=== PATIENT | female | born 1995 | race African-American/Black ===

== ENCOUNTER 2016-09-23 01:36 | Emergency (ER) | payer SELFPAY ==
--- NOTE | ~2016-09-23 | ER ---
PATIENT'S NAME: OPAL SAUCEDO [facility] AGE: 21 Y [address] ROOM: [place] [address] LOCATION: [facility] ADMIT DATE: 09/23/2016 ER/Outpatient Report DISCHARGE DATE: 09/23/2016 FAMILY PHYSICIAN: Physician, Unknown ATTENDING PHYSICIAN: Peterson Mayfield Time of Arrival: 0136 hours. Time of Evaluation: 0141 hours. CHIEF COMPLAINT: Abdominal pain. HISTORY OF PRESENT ILLNESS: The patient is a 21-year-old female who presents to the emergency department today with a chief complaint of abdominal pain. She reports this started about 2 hours prior to arrival. She does have some nausea. No vomiting. No diarrhea or constipation. No fevers or chills. No urinary frequency or urgency. She denies any vaginal bleeding or vaginal discharge. She is sexually active. PAST MEDICAL HISTORY: Cyst on her ovary. PAST SURGICAL HISTORY: Facial reconstruction. SOCIAL HISTORY: The patient smokes half pack per day. Denies any alcohol or illicit drug use. ALLERGIES: PENICILLIN. MEDICATIONS: None. PRIMARY CARE DOCTOR: None. REVIEW OF SYSTEMS: All systems are reviewed by myself and are negative with the exception of those discussed in the HPI and past medical history. PHYSICAL EXAMINATION: VITAL SIGNS: Weight 55 kg. Blood pressure 130/76, pulse 89, respiratory rate 16, temperature 98.3, oxygen saturation 99% on room air. PATIENT'S NAME: OPAL SAUCEDO [facility] AGE: 21 Y [address] ROOM: [place] [address] LOCATION: [facility] ADMIT DATE: 09/23/2016 ER/Outpatient Report DISCHARGE DATE: 09/23/2016 FAMILY PHYSICIAN: Physician, Unknown ATTENDING PHYSICIAN: Peterson Mayfield GENERAL: The patient is a 21-year-old female, appears stated age, in no acute distress. HEENT: Head: Normocephalic, atraumatic. Pupils are equal, round, and reactive to light. Oropharynx is clear. NECK: Supple. There is no nuchal rigidity. CARDIOVASCULAR: Regular rate and rhythm. No murmurs, rubs, or gallops. LUNGS: Clear to auscultation bilaterally. No wheezes, rales, or rhonchi. ABDOMEN: Soft. Mild diffuse tenderness to palpation. No rebound, rigidity, or guarding. Positive bowel sounds. MUSCULOSKELETAL: The patient moves all 4 extremities. SKIN: Warm and dry. No rashes or lesions noted. LABORATORY DATA AND X-RAYS: Urinalysis shows 500 leukocyte esterase, positive nitrites, 50-100 wbc's, full field epithelials, many bacteria. CBC is normal. Does show 0-2 Trichomonas. Urine HCG is negative. CMP is unremarkable. LFTs are normal. IMPRESSION: 1. Trichomoniasis. 2. Acute urinary tract infection. 3. Initial visit. EMERGENCY DEPARTMENT COURSE: The patient was brought back to the examination room. Seen and evaluated by myself. The patient was given 30 mg of Toradol IM. She is given 250 mg of Rocephin IM. I have discussed results with the patient. I have written a prescription for doxycycline, Macrobid and Flagyl. I have asked she follows up with primary care doctor for full STD testing. I have discussed return to care instructions including worsening symptoms or any other concerns to return to the emergency department as soon as possible. The patient is agreeable. She is without further questions at this time. DISPOSITION: The patient discharged home in good condition. DO CECILIO HURD/venkat /[id number] d: 09/23/16904 t: 09/23/16 192, OUTPATIENT REPORT
[2016-09-23 01:59] LABS: BILIRUBIN URINE NEGATIVE (NEGATIVE); BLOOD URINE 10 /UL (NEGATIVE); COLOR URINE YELLOW (YELLOW); GLUCOSE URINE NEGATIVE (NEGATIVE); KETONE URINE NEGATIVE (NEGATIVE); LEUKOCYTES URINE 500 /UL (NEGATIVE); NITRITE URINE POSITIVE (NEGATIVE); PH URINE 6.5 (4.0-8.0); PROTEIN URINE NEGATIVE (NEGATIVE); SPEC GRAVITY URINE 1.015 (1.003-1.035); TURBIDITY URINE 2+ (CLEAR); UROBILINOGEN URINE 1 mg/dL (NORMAL)
[2016-09-23 02:19] LABS: BASOPHIL # 0.1 K/uL (0.0-0.2); BASOPHIL % 0.6 %; EOSINOPHIL # 0.3 K/uL (0.0-0.5); EOSINOPHIL % 3.1 %; HEMATOCRIT 37.8 % (33.0-46.0); IMMATURE GRANULOCYTE % 0.3 %; LYMPHOCYTE # 4.3 K/uL (0.8-4.0); LYMPHOCYTE % 41.9 %; MCH 30.9 pg (27.0-34.0); MCHC 34.4 gm/dL (32.0-36.5); MCV 89.8 fl (83.0-98.0); MONOCYTE % 9.3 %; MPV 10.7 fl (9.4-12.4); NEUTROPHIL # (ANC) 4.6 K/uL (1.8-7.8); NEUTROPHIL % 44.8 %; NRBC % 0 /100WBC (0-0.00); PLATELET COUNT 181 K/uL (150-450); RBC 4.21 M/uL (3.50-5.00); RDW-CV 12.8 % (11.9-14.6); WBC 10.2 K/uL (4.0-11.0)
[2016-09-23 02:26] LABS: RBC URINE 0-2 #/HPF (NEGATIVE); WBC URINE 50-100 #/HPF (NEGATIVE)
[2016-09-23 02:27] LABS: BACTERIA URINE MANY (NEGATIVE); EPITHELIAL URINE FULL FIELD #/HPF (NEGATIVE); TRICHOMONAS URINE 0-2 #/HPF (NEGATIVE)
[2016-09-23 02:34] LABS: ALBUMIN 3.6 gm/dL (3.5-5.0); ALK PHOS 49 IU/L (33-138); ALT 22 IU/L (12-78); ANION GAP 9.8 (10.0-19.0); AST 17 IU/L (10-40); BLOOD UREA NITROGEN 11 mg/dL (6-24); CHLORIDE 108 mMol/L (96-110); CO2 26 mMol/L (22-32); CREATININE 0.9 mg/dL (0.5-1.1); POTASSIUM 3.8 mMol/L (3.7-5.1); SODIUM 140 mMol/L (135-145); TOTAL BILIRUBIN 0.2 mg/dL (0.0-1.5); TOTAL PROTEIN 7.1 g/dL (6.0-8.4)
== END 2016-09-23 03:11 | disposition disaster alternative care site (69) ==
LOC: GMED 01:36
PROVIDERS: Emergency Medicine
DX: N39.0 Urinary tract infection, site not specified (principal); A59.9 Trichomoniasis, unspecified; F17.210 Nicotine dependence, cigarettes, uncomplicated; Z88.0 Allergy status to penicillin; Z98.890 Other specified postprocedural states
CPT/HCPCS: J0696; J1885